=== PATIENT | female | born 2000 | race Caucasian/White ===

== ENCOUNTER → 2022-03-26 | Outpatient (CLI) | payer SELFPAY | LOC: M WHC 12:01 | PROVIDERS: ATTEND Nurse Practitioner Women's Health | DX: O03.4 Incomplete spontaneous abortion without complication (principal); N83.201 Unspecified ovarian cyst, right side ==

== ENCOUNTER → 2022-04-16 | Outpatient (CLI) | payer SELFPAY | LOC: M PLALAB 10:23 | PROVIDERS: ATTEND Nurse Practitioner Women's Health | DX: O03.4 Incomplete spontaneous abortion without complication (principal) ==

== ENCOUNTER → 2022-04-26 | Outpatient (CLI) | payer SELFPAY | LOC: M PLALAB 10:58 | PROVIDERS: ATTEND Nurse Practitioner Women's Health | DX: O03.4 Incomplete spontaneous abortion without complication (principal) ==